=== PATIENT | female | born 1980 | race Caucasian/White ===

== ENCOUNTER 2016-11-20 10:33 | Emergency (ER) | payer OTHER, BC ==
[~2016-11-20] VITALS: Ht 165.1 cm; Wt 99.8 kg
[~2016-11-20 10:33] MED LIST: EC NAPROSYN500 MG PO; FLEXERIL5 MG PO; NAPROSYN500 MG PO; NKHM; VICODIN 5/500 505 MG PO; VOLTAREN75 MG PO; ZOFRAN ODT4 MG SL
[2016-11-20 10:39] VITALS: BP 161/115
[2016-11-20] MEDS ORDERED: HYDROCODONE BIT1 T11 PO (12:32)
== END 2016-11-20 13:27 | disposition home or self-care (01) ==
LOC: ED 10:33
DX: S62.101A Fracture of unspecified carpal bone, right wrist, initial encounter for closed fracture (principal); Z88.0 Allergy status to penicillin; W19.XXXA Unspecified fall, initial encounter; Y93.9 Activity, unspecified; Y92.9 Unspecified place or not applicable; Y99.9 Unspecified external cause status

== ENCOUNTER → 2021-04-21 | Outpatient (CLI) | payer OTHER ==
[~2021-04-21] MED LIST changes: +HYDROCODONE BIT1 T11 PO
== END | disposition home or self-care (01) ==
LOC: COVID19 15:19
PROVIDERS: ATTEND Podiatrist Foot & Ankle Surgery
DX: Z11.52 Encounter for screening for COVID-19 (principal)

== ENCOUNTER → 2021-06-19 | Outpatient (CLI) | payer OTHER | END | disposition home or self-care (01) | LOC: COVID19 14:59 | PROVIDERS: ATTEND Internal Medicine | DX: U07.1 COVID-19 (principal) ==

== ENCOUNTER 2021-11-15 20:10 | Emergency (ER) | payer OTHER ==
[~2021-11-15] VITALS: Ht 157.4 cm; Wt 104.3 kg
[2021-11-15 20:18] VITALS: BP 142/95
== END 2021-11-15 22:45 | disposition home or self-care (01) ==
LOC: ED 20:10
DX: M25.332 Other instability, left wrist (principal); Z88.0 Allergy status to penicillin; Z98.51 Tubal ligation status

== ENCOUNTER 2021-12-22 18:36 | Emergency (ER) | payer OTHER ==
[~2021-12-22] VITALS: Ht 165.1 cm; Wt 104.3 kg
[2021-12-22 19:01] VITALS: BP 147/99
== END 2021-12-22 19:39 | disposition home or self-care (01) ==
LOC: ED 18:36
DX: R19.7 Diarrhea, unspecified (principal)

== ENCOUNTER 2022-04-22 16:16 | Emergency (ER) | payer OTHER | END 2022-04-22 21:46 | disposition left against medical advice (07) | LOC: ED 16:16 | DX: Z53.21 Procedure and treatment not carried out due to patient leaving prior to being seen by health care provider (principal) ==

== ENCOUNTER 2022-06-11 20:27 | Emergency (ER) | payer OTHER ==
[~2022-06-11] VITALS: Ht 167.6 cm; Wt 90.7 kg
[2022-06-11 20:51] VITALS: BP 153/64
== END 2022-06-11 21:54 | disposition home or self-care (01) ==
LOC: ED 20:27
DX: S63.501A Unspecified sprain of right wrist, initial encounter (principal); Z88.0 Allergy status to penicillin; X50.1XXA Overexertion from prolonged static or awkward postures, initial encounter; Y93.89 Activity, other specified; Y92.89 Other specified places as the place of occurrence of the external cause; Y99.9 Unspecified external cause status

== ENCOUNTER 2023-01-30 08:21 | Emergency (ER) | payer OTHER, MEDICAID ==
[~2023-01-30] VITALS: Ht 165.1 cm; Wt 104.3 kg
[2023-01-30 08:48] VITALS: BP 169/99
[2023-01-30 09:42] LABS: BASO % 0.3 % (0.0-1.0); EOS # 0.1 10*3/uL (0.0-0.4); EOS % 1.4 % (1.0-4.0); HEMATOCRIT 38.4 % (37.0-47.0); LYMPH # 1.5 10*3/uL (1.3-4.4); LYMPH % 26.8 % (27.0-41.0); MEAN CELL VOLUME 91.2 fl (81.0-99.0); MEAN CORPUSCULAR HGB 30.2 pg (27.0-31.0); MEAN CORPUSCULAR HGB CONC 33.1 g/dl (33.0-37.0); MEAN PLATELET VOLUME 11.9 fl (9.6-12.3); MONO # 0.4 10*3/uL (0.1-1.0); MONO % 7.5 % (3.0-9.0); NEUT # 3.7 10*3/uL (2.3-7.9); NEUT % 63.7 % (47.0-73.0); PLATELET COUNT AUTOMATED 208 10*3/uL (130-400); RED BLOOD COUNT 4.21 10*6/uL (4.10-5.10); RED CELL DISTRI WIDTH 13.1 % (0-14.5); WHITE BLOOD COUNT 5.7 10*3/uL (4.8-10.8)
[2023-01-30 10:10] LABS: ALKALINE PHOSPHATASE 83 U/L (46-116); BUN 15 mg/dl (9-23); CHLORIDE 102 mmol/L (98-107); LIPASE 28 U/L (12-53); POTASSIUM 3.2 mmol/L (3.4-5.1); SGPT/ALT 13 U/L (10-49); TOTAL PROTEIN 7.2 gm/dL (6.0-8.0)
[2023-01-30 10:11] LABS: BETA-HCG, QUANT < 3.0 mIU/mL (3-10)
[2023-01-30] MEDS ORDERED: PHENERGAN25 M3 PO (11:29)
== END 2023-01-30 11:31 | disposition home or self-care (01) ==
LOC: ED 08:21
PROVIDERS: Emergency Medicine
DX: R11.2 Nausea with vomiting, unspecified (principal); I10 Essential (primary) hypertension; Z88.0 Allergy status to penicillin; Z98.51 Tubal ligation status

== ENCOUNTER 2023-03-21 21:53 | Emergency (ER) | payer MEDICAID ==
[~2023-03-21] VITALS: Ht 165.1 cm; Wt 113.4 kg
[~2023-03-21 21:53] MED LIST changes: +PHENERGAN25 M3 PO
[2023-03-21 22:15] VITALS: BP 144/96
[2023-03-21] MEDS ORDERED: AMOX-CLAV 875-1 EACH PO (22:25)
== END 2023-03-21 23:46 | disposition home or self-care (01) ==
LOC: ED 21:53
DX: H66.92 Otitis media, unspecified, left ear (principal); I10 Essential (primary) hypertension; Z88.0 Allergy status to penicillin; Z98.51 Tubal ligation status; F17.290 Nicotine dependence, other tobacco product, uncomplicated; Z20.822 Contact with and (suspected) exposure to COVID-19

== ENCOUNTER 2023-04-13 16:43 | Emergency (ER) | payer MEDICAID ==
[~2023-04-13] VITALS: Ht 165.1 cm; Wt 127.0 kg
[~2023-04-13 16:43] MED LIST changes: +AMOX-CLAV 875-1 EACH PO
[2023-04-13 17:49] LABS: BASO % 0.3 % (0.0-1.0); EOS # 0.1 10*3/uL (0.0-0.4); EOS % 1.6 % (1.0-4.0); HEMATOCRIT 36.1 % (37.0-47.0); LYMPH # 1.4 10*3/uL (1.3-4.4); LYMPH % 23.9 % (27.0-41.0); MEAN CELL VOLUME 91.4 fl (81.0-99.0); MEAN CORPUSCULAR HGB 30.4 pg (27.0-31.0); MEAN CORPUSCULAR HGB CONC 33.2 g/dl (33.0-37.0); MEAN PLATELET VOLUME 12.5 fl (9.6-12.3); MONO # 0.4 10*3/uL (0.1-1.0); MONO % 6.4 % (3.0-9.0); NEUT # 3.9 10*3/uL (2.3-7.9); NEUT % 67.6 % (47.0-73.0); PLATELET COUNT AUTOMATED 183 10*3/uL (130-400); RED BLOOD COUNT 3.95 10*6/uL (4.10-5.10); WHITE BLOOD COUNT 5.8 10*3/uL (4.8-10.8)
[2023-04-13 18:10] LABS: BILIRUBIN Negative (Negative); BLOOD Negative (Negative); CLARITY Cloudy (Clear); COLOR Yellow (Yellow); GLUCOSE Negative (Negative); KETONE Negative (Negative); LEUKO ESTERASE Negative (Negative); NITRITE Negative (Negative); PH 5.5 (4.5-8.0); SPECIFIC GRAVITY 1.025 (1.001-1.030)
[2023-04-13 18:35] LABS: BACTERIA 1+; MUCOUS 1+
[2023-04-13 18:41] LABS: URINE AMPHETAMINES Positive (1000ng/ml); URINE BARBITURATES Negative (200ng/ml); URINE BENZODIAZEPINES Positive (200ng/ml); URINE CANNABINOIDS (THC) Positive (50ng/ml); URINE COCAINE Negative (300ng/ml); URINE METHADONE Negative (300ng/ml); URINE OPIATES Negative (300ng/ml); URINE PHENCYCLIDINE Negative (25ng/ml)
[2023-04-13] MEDS ORDERED: KENALOG 0.1%80 GM T (18:42)
[2023-04-13] MEDS ORDERED: CIPRO500 MG PO (18:42)
[2023-04-13] MEDS ORDERED: ONDANSETRON4 MG SL (18:42)
[2023-04-13 18:46] LABS: ALKALINE PHOSPHATASE 78 U/L (46-116); BUN 19 mg/dl (9-23); CHLORIDE 106 mmol/L (98-107); POTASSIUM 3.2 mmol/L (3.4-5.1); SGPT/ALT 20 U/L (10-49); TOTAL PROTEIN 6.8 gm/dL (6.0-8.0)
[2023-04-13 19:09] VITALS: BP 133/69
== END 2023-04-13 19:41 | disposition home or self-care (01) ==
LOC: ED 16:43
PROVIDERS: Emergency Medicine
DX: R53.1 Weakness (principal); R11.2 Nausea with vomiting, unspecified; R21 Rash and other nonspecific skin eruption; N39.0 Urinary tract infection, site not specified; I10 Essential (primary) hypertension; Z88.0 Allergy status to penicillin; Z98.51 Tubal ligation status; Z79.899 Other long term (current) drug therapy

== ENCOUNTER 2024-04-04 06:37 | Emergency (ER) | payer MEDICAID ==
[~2024-04-04] VITALS: Ht 165.1 cm; Wt 113.4 kg
[~2024-04-04 06:37] MED LIST changes: +CIPRO500 MG PO; +KENALOG 0.1%80 GM T; +ONDANSETRON4 MG SL
[2024-04-04 06:48] VITALS: BP 138/92
[2024-04-04] MEDS ORDERED: LORazepam 1 MG TAB PO ONE (06:55)
[2024-04-04 07:15] LABS: URINE AMPHETAMINES Positive (1000ng/ml); URINE BARBITURATES Negative (200ng/ml); URINE BENZODIAZEPINES Negative (200ng/ml); URINE CANNABINOIDS (THC) Positive (50ng/ml); URINE COCAINE Negative (300ng/ml); URINE METHADONE Negative (300ng/ml); URINE OPIATES Negative (300ng/ml); URINE PHENCYCLIDINE Negative (25ng/ml)
[2024-04-04] MEDS ORDERED: LORazepam 2 MG/ML VIAL IV ONE (07:55)
[2024-04-04] MEDS ORDERED: SODIUM CHLORIDE 0.9% 1,000 ML IV ONE (07:55)
[2024-04-04 08:05] LABS: BASO % 0.3 % (0.0-1.0); EOS % 0.5 % (1.0-4.0); HEMATOCRIT 36.9 % (37.0-47.0); LYMPH # 1.1 10*3/uL (1.3-4.4); LYMPH % 17.7 % (27.0-41.0); MEAN CELL VOLUME 92.9 fl (81.0-99.0); MEAN CORPUSCULAR HGB 29.7 pg (27.0-31.0); MEAN PLATELET VOLUME 11.9 fl (9.6-12.3); MONO # 0.3 10*3/uL (0.1-1.0); MONO % 5.7 % (3.0-9.0); NEUT # 4.5 10*3/uL (2.3-7.9); NEUT % 75.6 % (47.0-73.0); PLATELET COUNT AUTOMATED 221 10*3/uL (130-400); RED BLOOD COUNT 3.97 10*6/uL (4.10-5.10); RED CELL DISTRI WIDTH 13.1 % (0-14.5); WHITE BLOOD COUNT 5.9 10*3/uL (4.8-10.8)
[2024-04-04 08:27] LABS: BUN 19 mg/dl (9-23); CHLORIDE 105 mmol/L (98-107); POTASSIUM 3.5 mmol/L (3.4-5.1)
== END 2024-04-04 08:45 | disposition home or self-care (01) ==
LOC: ED 06:37
PROVIDERS: Emergency Medicine; Internal Medicine
DX: R45.1 Restlessness and agitation (principal); F15.10 Other stimulant abuse, uncomplicated; I10 Essential (primary) hypertension; F17.200 Nicotine dependence, unspecified, uncomplicated; Z88.0 Allergy status to penicillin; Z98.51 Tubal ligation status; Z79.899 Other long term (current) drug therapy

== ENCOUNTER 2024-05-24 19:23 | Emergency (ER) | payer OTHER, MEDICAID ==
[~2024-05-24] VITALS: Ht 165.1 cm; Wt 104.3 kg
[2024-05-24] MEDS ORDERED: IOHEXOL 300 MG/ML 100 ML VIAL IV ONE (19:40)
[2024-05-24 20:04] LABS: BASO % 0.2 % (0.0-1.0); EOS # 0.1 10*3/uL (0.0-0.4); EOS % 0.7 % (1.0-4.0); HEMATOCRIT 37.9 % (37.0-47.0); MEAN CELL VOLUME 93.3 fl (81.0-99.0); MEAN CORPUSCULAR HGB 29.8 pg (27.0-31.0); MEAN CORPUSCULAR HGB CONC 31.9 g/dl (33.0-37.0); MEAN PLATELET VOLUME 11.6 fl (9.6-12.3); MONO # 0.5 10*3/uL (0.1-1.0); MONO % 5.6 % (3.0-9.0); NEUT # 6.5 10*3/uL (2.3-7.9); NEUT % 73.1 % (47.0-73.0); PLATELET COUNT AUTOMATED 256 10*3/uL (130-400); RED BLOOD COUNT 4.06 10*6/uL (4.10-5.10); WHITE BLOOD COUNT 8.9 10*3/uL (4.8-10.8)
[2024-05-24 20:29] LABS: ALKALINE PHOSPHATASE 83 U/L (46-116); BUN 19 mg/dl (9-23); CHLORIDE 103 mmol/L (98-107); LIPASE 43 U/L (12-53); POTASSIUM 3.7 mmol/L (3.4-5.1); SGPT/ALT 31 U/L (5-49); TOTAL PROTEIN 7.3 gm/dL (6.0-8.0)
[2024-05-24 20:37] LABS: ETHYL ALCOHOL < 3.0 mg/dl (<3)
[2024-05-24] MEDS ORDERED: SODIUM CHLORIDE 0.9% 1,000 ML IV ONE (21:25)
[2024-05-24 21:33] VITALS: BP 138/74
[2024-05-24 21:48] LABS: BILIRUBIN Negative (Negative); BLOOD 3+ (Negative); CLARITY Clear (Clear); GLUCOSE Negative (Negative); KETONE Negative (Negative); LEUKO ESTERASE Negative (Negative); NITRITE Negative (Negative); SPECIFIC GRAVITY >= 1.030 (1.001-1.030)
[2024-05-24 22:01] LABS: COLOR Red (Yellow); RBC TNTC rbc/hpf (0-2)
[2024-05-24 22:02] LABS: BACTERIA 1+
[2024-05-24 22:05] LABS: URINE AMPHETAMINES Positive (1000ng/ml); URINE BARBITURATES Negative (200ng/ml); URINE BENZODIAZEPINES Negative (200ng/ml); URINE CANNABINOIDS (THC) Negative (50ng/ml); URINE COCAINE Negative (300ng/ml); URINE METHADONE Negative (300ng/ml); URINE OPIATES Negative (300ng/ml); URINE PHENCYCLIDINE Negative (25ng/ml)
== END 2024-05-24 22:31 | disposition short-term general hospital (02) ==
LOC: ED 19:23
PROVIDERS: Nurse Practitioner Family
DX: S22.32XA Fracture of one rib, left side, initial encounter for closed fracture (principal); S92.411A Displaced fracture of proximal phalanx of right great toe, initial encounter for closed fracture; S36.039A Unspecified laceration of spleen, initial encounter; S37.032A Laceration of left kidney, unspecified degree, initial encounter; S37.031A Laceration of right kidney, unspecified degree, initial encounter; M54.2 Cervicalgia; S20.311A Abrasion of right front wall of thorax, initial encounter; I10 Essential (primary) hypertension; F17.290 Nicotine dependence, other tobacco product, uncomplicated; Z79.899 Other long term (current) drug therapy; Z88.0 Allergy status to penicillin; Z98.51 Tubal ligation status; V43.62XA Car passenger injured in collision with other type car in traffic accident, initial encounter; Y93.89 Activity, other specified; Y92.410 Unspecified street and highway as the place of occurrence of the external cause; Y99.8 Other external cause status

== ENCOUNTER 2024-08-24 21:20 | Emergency (ER) | payer MEDICAID ==
[~2024-08-24] VITALS: Ht 165.1 cm; Wt 90.7 kg
[2024-08-24 21:55] VITALS: BP 135/95
[2024-08-25] MEDS ORDERED: DECADRON4 MG PO (00:38)
[2024-08-25] MEDS ORDERED: Ondansetron4 MG PO (00:48)
== END 2024-08-25 04:01 | disposition home or self-care (01) ==
LOC: ED 21:20
DX: U07.1 COVID-19 (principal); I10 Essential (primary) hypertension; Z98.51 Tubal ligation status